=== PATIENT | female | born 1990 | race Caucasian/White ===

== ENCOUNTER 2024-12-28 03:26 | Emergency (ER) | payer MEDICAID ==
[~2024-12-28] VITALS: Ht 157.5 cm; Wt 59.1 kg
[2024-12-28 03:32] VITALS: BP 144/103; PULSE 98; TEMP 97.2; O2SAT 97
--- NOTE | 2024-12-28 04:35 | Physician Documentation ---
History of Present Illness Chief Complaint: Abdominal Pain Stated Complaint: ABD PAIN Time Seen by MD: 04:34 HPI 34-year-old female presenting with lower abdominal pain She tells me that she has irregular menstrual cycles. She just had a menstrual cycle that had heavier bleeding than normal, which finished about 2 days ago. Following the bleeding, she then developed significant lower abdominal discomfort and cramping. She tells me that it is across the entire lower abdomen, is sharp and crampy, and feels higher than her normal menstrual cramps. She denies any fevers, chills, vomiting, diarrhea, constipation, dysuria, hematuria. She did not try any medications, nothing makes it better Medication Reconciliation Allergies: Coded Allergies: No Known Allergies (Unverified , 12/28/24) Scheduled Doxycycline Hyclate (Doxycycline Hyclate), 1 CAP PO Q12H Nitrofurantoin Monohyd/M-Cryst (Macrobid 100 mg Capsule), 1 CAP PO Q12H Review of Systems Constitutional: Denies: fever Gastrointestinal: Reports: abdominal pain, nausea; Denies: vomiting, diarrhea Physical Exam Vital Signs: Temperature: 97.2, Source: Temporal, Heart Rate: 98, Respiratory Rate: 16, BP: 144/103, Pulse Oximetry: 97, Weight: 59.100 Physical Exam General: This is a pleasant and young female, not in distress, boyfriend at bedside HEENT: Atraumatic, oropharynx is moist Heart: Mild tachycardic, appears regular, normal-appearing peripheral perfusion Lungs: normal work of breathing, normal oxygen saturation on room air Abdomen: Soft, nondistended. No upper abdominal tenderness. The patient has generalized lower abdominal tenderness including in the right lower quadrant and left lower quadrant and suprapubic region. No rebound or guarding Neuro: Alert and oriented Psychiatric: Calm and cooperative with exam Progress Results/Orders Results/Orders Orders - DONG ABRAMS MD Urinalysis, Cult If Indicated (12/28/24 03:37) Hcg, Ur Ql (12/28/24 03:37) Cbc/Diff (12/28/24 03:37) BMP (12/28/24 03:37) Lipase (12/28/24 03:37) CMP (12/28/24 03:37) Vital Signs 12/28/24 03:32 Temp 97.2 Pulse 98 Resp 16 B/P (MAP) 144/103 Pulse Ox 97 Medical Decision Making Additional information obtaine: N/A Findings na Differential Dx:Considerations: Appendicitis, Bowel obstruction, Constipation, Diverticular disease, Ovarian cyst/torsion, PID, Urinary obstruction, Urinary tract infection Additional Comments The patient presents with lower abdominal pain. On exam she is tender across the lower abdomen, but without peritoneal findings. No other infectious type symptoms. IV was placed and she was given Toradol and Zofran. Labs grossly unremarkable. Urinalysis is nitrite positive and concerning for UTI. On repeat abdominal exam she is very tender, more than I would expect for just a simple urinary tract infection. I explained my concern for possible appendicitis, PID, or other process. I recommended abdominal imaging and further workup. Unfortunately, the patient then requested to leave, and declined any further treatment or testing. I tried to convince her to stay but she would not. Since she is leaving, I treated her with IM ceftriaxone, doxycycline, and Macrobid, to try to cover PID and UTI. She agreed to return if she has worsening symptoms including worsening abdominal pain. Departure Time of Disposition: 06:01 Disposition: 01 HOME / SELF CARE / HOMELESS Impression: Primary Impression: Bilateral lower abdominal cramping Additional Impression: Acute urinary tract infection Condition: Stable Discharge Instructions: Abdominal Pain, Women, Urinary Tract Infection, Adult Referrals: NO PRIMARY CARE PROVIDER (PCP) Prescriptions Nitrofurantoin Monohyd/M-Cryst (Macrobid 100 mg Capsule) 100 Mg Capsule 1 CAP PO Q12H for 7 Days, #14 CAP 0 Refills Prov: DONG ABRAMS MD 12/28/24 Doxycycline Hyclate (Doxycycline Hyclate) 100 Mg Capsule 1 CAP PO Q12H for 7 Days, #14 CAP Prov: DONG ABRAMS MD 12/28/24 Education Educated: Patient Educated regarding: diagnosis, treatment, need for follow up Signature Scribe Signature: na Attestation: DONG Krishna MD Dec 28, 2024 04:35
[2024-12-28 05:24] VITALS: RESP 14
[2024-12-28] MEDS: ketorolac trometh 15mg/ml vial 15 MG/ML ML IV ONE (05:24)
[2024-12-28] MEDS: ondansetron/PF 4mg/2ml inj IV ONE (05:25)
[2024-12-28 05:37] LABS: MEAN PLATELET VOLUME 8.3 FL (7.4-10.4); RED CELL DISTRIBUTION WIDTH 13.0 % (11.5-14.5)
[2024-12-28 05:41] LABS: LEUKOCYTE ESTERASE ,URINE TRACE (Neg); NITRITES, URINE POSITIVE (Neg); OCCULT BLOOD,URINE TRACE-INTACT (Neg)
[2024-12-28 05:42] LABS: UA COLLECTION TYPE CLN CATCH MIDSTREAM; URINE HCG NEGATIVE (NEG)
[2024-12-28 05:50] LABS: MUCUS STRANDS FEW /LPF (Neg); SQUAMOUS EPITHELIAL CELL,UR MANY /LPF (FEW)
[2024-12-28 05:51] LABS: TRIPLE PHOSPHATE CRYST 1+ /HPF (NEGATIVE)
[2024-12-28 05:52] LABS: CREATININE 0.64 MG/DL (0.40-0.90); TOTAL CARBON DIOXIDE 29.0 MMOL/L (24-32); eCRCL 97 ML/MIN; eGFR > 90 ML/MIN
[2024-12-28] MEDS ORDERED: NITR100C6 PO (06:06)
[2024-12-28] MEDS ORDERED: DOXY-1 PO (06:06)
[2024-12-28] MEDS: CefTRIAXone 1000mg IM Kit (w/lidocaine diluent) IM ONE (06:16)
== END 2024-12-28 06:19 | disposition home or self-care (01) ==
LOC: ER 03:27
DX: N39.0 Urinary tract infection, site not specified (principal); R10.31 Right lower quadrant pain; R10.32 Left lower quadrant pain; Z79.899 Other long term (current) drug therapy
CPT/HCPCS: 36415; 80053; 81001; 81025; 83690; 85025; 96372; 96374; 96375; 99284; J0696; J1885; J2405